=== PATIENT | female | born 1965 | race African-American/Black ===

== ENCOUNTER 2024-03-25 11:41 | Emergency (ER) | payer OTHER ==
[~2024-03-25] VITALS: Ht 170.2 cm; Wt 124.0 kg
[2024-03-25 11:44] VITALS: TEMP 98.2; O2SAT 99
[2024-03-25] MEDS ORDERED: MECLIZINE 25MG TABLET PO STA (11:58)
[2024-03-25] MEDS ORDERED: MECLIZINE 12.5MG TABLET PO STA (12:11)
[2024-03-25] MEDS: ONDANSETRON HCL 4MG/2ML INJ IV ONE (12:24)
[2024-03-25] MEDS: HYDRALAZINE 20MG/ML VIAL IV ONE (12:24)
[2024-03-25 12:37] LABS: BASOPHILS % 1.4 % (0.0-2.0); DIFFERENTIAL COMMENT 0; EOSINOPHILS % 2.9 % (0.0-5.0); HEMATOCRIT. 41.3 % (36.0-48.0); MEAN CORPUSCULAR HEMOGLOBIN 22.4 pg (28.0-32.0); MEAN CORPUSCULAR HGB CONC 31.4 g/dL (31.0-37.0); MEAN CORPUSCULAR VOLUME 71.4 fL (81.0-99.0); MEAN PLATELET VOLUME 8.5 fl (7.4-10.4); MONOCYTES % 6.7 % (2.0-8.0); PLATELET 280 x1000/uL (130-400); RED BLOOD CELL COUNT 5.79 mill/uL (4.2-5.4); RED CELL DISTRIBUTION WIDTH 14.1 % (11.6-14.6); WHITE BLOOD COUNT 6.2 x1000/uL (4.5-11.0)
[2024-03-25] MEDS: MECLIZINE 12.5MG TABLET PO NR (12:44)
[2024-03-25 12:47] LABS: CHLORIDE 104 mEq/L (98-107); POTASSIUM 3.6 mEq/L (3.5-5.1); SODIUM 139 mEq/L (136-145)
[2024-03-25 12:48] LABS: CARBON DIOXIDE 28 mEq/L (21-32); PROTHROMBIN TIME 11.4 sec (9.6-11.0)
[2024-03-25 12:49] LABS: CALCIUM 9.6 mg/dL (8.7-10.4)
[2024-03-25 12:53] LABS: CREATININE 0.6 mg/dL (0.6-1.0)
[2024-03-25 12:54] LABS: GLUCOSE 98 mg/dL (70-105); UREA NITROGEN BLOOD 9 mg/dL (9-23)
[2024-03-25 13:01] LABS: TROPONIN I HIGH SENSITIVITY 39 ng/L (3.0-34)
[2024-03-25 15:29] LABS: TROPONIN I HIGH SENSITIVITY 43 ng/L (3.0-34)
[2024-03-25] MEDS: MORPHINE SULFATE 4 MG/ML INJ (FOR IV/IM USE) IV ONE (17:11)
[2024-03-25 17:51] LABS: TROPONIN I HIGH SENSITIVITY 34 ng/L (3.0-34)
[2024-03-25 18:26] VITALS: BP 144/68; PULSE 88; RESP 20
== END 2024-03-25 18:50 | disposition admitted as inpatient to this hospital (09) ==
LOC: ER 11:41 → CANBEDREQ 19:05
DX: I16.9 Hypertensive crisis, unspecified (principal); Z85.41 Personal history of malignant neoplasm of cervix uteri; Z85.3 Personal history of malignant neoplasm of breast; Z88.0 Allergy status to penicillin
CPT/HCPCS: 80048; 83880; 85025; 85610; 84484; 36415; 71045; 70450; 93005; 96374; 96375; 99291; J8597; J0360; J2405; J2270; Z7610 ×2